=== PATIENT | male | born 1985 | race African-American/Black ===

== ENCOUNTER 2021-09-11 16:20 | Emergency (ER) | payer OTHER ==
[2021-09-11 19:08] LABS: CORONAVIRUS 2019 SARS-COV-2 NEGATIVE (NEGATIVE); INFLUENZA A NAA NEGATIVE (NEGATIVE)
[2021-09-11 19:11] LABS: BASOPHIL 0.2 % (0-2); EOSINOPHIL 0 % (0-5); HCT 50.6 % (42.0-52.0); HGB 16.5 g/dl (13.2-18.0); LYMPHOCYTE 20.5 % (15-48); MCHC 32.6 g/dL (32.0-36.0); MONOCYTE 13.6 % (0-12); NRBC 0; PLT 221 K/uL (150-400); RDW 12.4 % (11.5-14.0); WBC 6.1 K/uL (4.0-10.5)
[2021-09-11 19:27] LABS: BILIRUBIN - TOTAL 0.4 mg/dL (0.2-1.0); CREATININE 0.75 mg/dL (0.67-1.17); POTASSIUM 3.8 mmol/L (3.5-5.1)
== END 2021-09-12 00:41 | disposition home or self-care (01) ==
LOC: FER 16:20
PROVIDERS: Internal Medicine
DX: R05.9 Cough, unspecified (principal); F99 Mental disorder, not otherwise specified; F20.9 Schizophrenia, unspecified; F17.210 Nicotine dependence, cigarettes, uncomplicated; F14.10 Cocaine abuse, uncomplicated; F15.10 Other stimulant abuse, uncomplicated; Z88.0 Allergy status to penicillin; Z88.8 Allergy status to other drugs, medicaments and biological substances; Z88.4 Allergy status to anesthetic agent; Z20.822 Contact with and (suspected) exposure to COVID-19
CPT/HCPCS: 36415; 71045; 80053; 84145; 85025; U0002